=== PATIENT | female | born 1990 | race Caucasian/White ===

== ENCOUNTER 2016-05-17 18:31 | Emergency (ER) | payer SELFPAY ==
[~2016-05-17] VITALS: Ht 162.6 cm; Wt 61.4 kg
[2016-05-17 18:47] VITALS: BP 114/81; TEMP 97.8
[2016-05-17] MEDS ORDERED: PROZAC 20MG20 MG PO (18:49)
[2016-05-17] MEDS ORDERED: YAZ 28 3 MG-0.01 TAB PO (18:50)
[2016-05-17] MEDS ORDERED: ROXICODONE 55 MG/TAB PO (20:22)
[2016-05-17 20:56] VITALS: PULSE 75
== END 2016-05-17 20:56 | disposition home or self-care (01) ==
LOC: COL.ER 18:31
DX: S82.891A Other fracture of right lower leg, initial encounter for closed fracture (principal); W17.89XA Other fall from one level to another, initial encounter

== ENCOUNTER 2016-10-09 21:56 | Emergency (ER) | payer BC ==
[~2016-10-09] VITALS: Ht 162.6 cm; Wt 65.9 kg
[~2016-10-09 21:56] MED LIST: PROZAC 20MG20 MG PO; ROXICODONE 55 MG/TAB PO; YAZ 28 3 MG-0.01 TAB PO
[2016-10-09 21:59] VITALS: TEMP 98.4
[2016-10-09 22:31] LABS: BASO % 0.3 % (0.0-2.0); EOS # 0.1 (0.0-0.7); EOS % 1.2 % (0-4.0); GRAN # 9.1 (1.4-6.5); GRAN % 78.6 % (42.2-75.2); LYMPH # 1.4 (1.2-3.4); LYMPH % 12.3 % (20.0-51.0); MEAN CELL VOLUME 91 fl (80.0-100.0); MEAN CORPUSCULAR HGB CONC 34 g/dl (33.0-37.0); MEAN PLATELET VOLUME 10.2 fl (7.4-10.4); MONO # 0.8 (0.1-0.6); MONO % 7.1 % (1.7-9.3); PLATELET COUNT 224 K/mm3 (130-400); RED BLOOD COUNT 3.67 M/mm3 (4.10-5.30); REDCELL DISTRIBUTION WIDTH-CV 13.2 % (11.5-14.5); WHITE BLOOD COUNT 11.6 K/mm3 (4.8-10.8)
[2016-10-09 22:38] LABS: HEMATOCRIT 33.5 % (37.0-47.0); HEMOGLOBIN 11.3 g/dl (12.5-16.0); MEAN CORPUSCULAR HEMOGLOBIN 31 pg (27.0-31.0); PH 8 (5-8); URINE APPEARANCE Cloudy; URINE BACTERIA None Seen /hpf; URINE BILIRUBIN Negative (NEGATIVE); URINE BLOOD Negative (NEGATIVE); URINE COLOR Yellow; URINE GLUCOSE Negative (NEGATIVE); URINE KETONE Negative (NEGATIVE); URINE RBC None Seen /hpf; URINE UROBILINOGEN Negative (NEGATIVE)
[2016-10-09 22:59] LABS: ADJUSTED CALCIUM 9.3 mg/dL (8.4-10.2); ALBUMIN 3.9 gm/dL (3.5-5.0); BILIRUBIN,TOTAL 0.5 mg/dL (0.0-1.0); C-REACTIVE PROTEIN 2.6 mg/dL (0.0-0.9); CALCIUM 9.2 mg/dL (8.4-10.2); CREATININE, serum 0.6 mg/dL (0.52-1.25); POTASSIUM 3.9 mmol/L (3.4-5.0); TOTAL PROTEIN 7.2 gm/dL (6.4-8.2)
[2016-10-10 00:02] VITALS: BP 122/76; PULSE 92
== END 2016-10-10 00:01 | disposition home or self-care (01) ==
LOC: COL.ER 21:56
PROVIDERS: Family Medicine
DX: O99.89 Other specified diseases and conditions complicating pregnancy, childbirth and the puerperium (principal); R10.2 Pelvic and perineal pain; R10.31 Right lower quadrant pain; Z3A.18 18 weeks gestation of pregnancy
CPT/HCPCS: J2270; J7030

== ENCOUNTER 2017-02-02 16:59 | Inpatient (IN) | payer BC ==
[~2017-02-02] VITALS: Ht 162.7 cm; Wt 77.3 kg
[2017-03-02] MEDS ORDERED: TYLENOL 325MG325 MG PO (10:42)
[2017-03-02] MEDS ORDERED: AMBIEN 5MG TABLE5 MG PO (11:07)
[2017-03-04] VITALS (17 sets, daily range): BP systolic 109–130; BP diastolic 59–87; PULSE 64–97; TEMP 97.4–98.1
[2017-03-04 10:47] LABS: BASO % 0.4 % (0.0-2.0); EOS # 0.1 (0.0-0.7); EOS % 1.1 % (0-4.0); GRAN # 5.7 (1.4-6.5); GRAN % 66.7 % (42.2-75.2); LYMPH # 1.9 (1.2-3.4); LYMPH % 22.1 % (20.0-51.0); MEAN CELL VOLUME 87 fl (80.0-100.0); MEAN CORPUSCULAR HGB CONC 33 g/dl (33.0-37.0); MEAN PLATELET VOLUME 10.2 fl (7.4-10.4); MONO # 0.7 (0.1-0.6); MONO % 8.5 % (1.7-9.3); PLATELET COUNT 198 K/mm3 (130-400); RED BLOOD COUNT 3.57 M/mm3 (4.10-5.30); REDCELL DISTRIBUTION WIDTH-CV 14.3 % (11.5-14.5)
[2017-03-04 10:48] LABS: HEMATOCRIT 31.2 % (37.0-47.0); HEMOGLOBIN 10.2 g/dl (12.5-16.0); MEAN CORPUSCULAR HEMOGLOBIN 29 pg (27.0-31.0)
[2017-03-04] MEDS ORDERED: PERCOCET 325 MG1 TA2 PO (14:35)
[2017-03-04] MEDS ORDERED: MOTRIN 800800 MG/TAB PO (14:35)
[2017-03-05 01:30] VITALS: BP 108/71; PULSE 88; TEMP 97.4
[2017-03-05 04:30] VITALS: BP 111/72; PULSE 80; TEMP 97.4
[2017-03-05 08:05] VITALS: BP 116/60; PULSE 74; TEMP 97.4
[2017-03-05 08:17] LABS: HEMATOCRIT 29.1 % (37.0-47.0); HEMOGLOBIN 9.5 g/dl (12.5-16.0)
[2017-03-05 16:10] VITALS: BP 117/73; PULSE 79; TEMP 97.6
[2017-03-05 18:40] VITALS: BP 120/73; PULSE 79; TEMP 97.8
[2017-03-06 06:30] VITALS: BP 115/80; PULSE 71; TEMP 97.7
[2017-03-06 16:40] VITALS: BP 120/68; PULSE 70; TEMP 97.5
[2017-03-06 19:20] VITALS: BP 116/70; PULSE 77; TEMP 98.2
[2017-03-07 07:30] VITALS: BP 127/75; PULSE 68; TEMP 97.6
== END 2017-03-07 11:00 | disposition home or self-care (01) | DRG 766 ==
LOC: LDR 02-11 16:59 → OB 03-04 06:44
PROVIDERS: Obstetrics & Gynecology
PROC: 10D00Z1 Extraction of Products of Conception, Low, Open Approach (ICD-10-PCS; principal; 2017-03-04)
DX: O36.0130 Maternal care for anti-D [Rh] antibodies, third trimester, not applicable or unspecified (principal); O99.344 Other mental disorders complicating childbirth; F41.9 Anxiety disorder, unspecified; Z3A.39 39 weeks gestation of pregnancy; Z37.0 Single live birth
CPT/HCPCS: J0690; J1885; J2270; J2370; J2590; J7120

== ENCOUNTER 2017-02-25 19:02 | Outpatient (CLI) | payer BC ==
[~2017-02-25] VITALS: Ht 162.6 cm; Wt 77.3 kg
[2017-02-25 18:45] VITALS: BP 123/71; PULSE 78; TEMP 97.9
[2017-02-25 20:45] VITALS: BP 117/60; PULSE 78
[2017-02-25 21:45] VITALS: BP 116/59; PULSE 80
[2017-02-25 23:39] VITALS: BP 123/71; PULSE 78; TEMP 97.9
== END 2017-02-25 23:50 | disposition home or self-care (01) ==
LOC: LDRO 19:02
DX: Z04.3 Encounter for examination and observation following other accident (principal); O9A.213 Injury, poisoning and certain other consequences of external causes complicating pregnancy, third trimester; W01.10XA Fall on same level from slipping, tripping and stumbling with subsequent striking against unspecified object, initial encounter; Z3A.38 38 weeks gestation of pregnancy

== ENCOUNTER 2017-03-02 10:18 | Outpatient (CLI) | payer BC ==
[~2017-03-02] VITALS: Ht 162.6 cm; Wt 77.3 kg
[2017-03-02 10:42] VITALS: BP 139/79; PULSE 103; TEMP 98.2
[2017-03-02] MEDS ORDERED: TYLENOL 325MG325 MG PO (10:42)
[2017-03-02] MEDS ORDERED: AMBIEN 5MG TABLE5 MG PO (11:07)
[2017-03-02 11:30] VITALS: BP 139/79; PULSE 103; TEMP 98.2
[2017-03-02 12:55] VITALS: BP 112/66; PULSE 84
[2017-03-02 13:39] VITALS: BP 112/66; PULSE 90
== END 2017-03-02 14:05 | disposition home or self-care (01) ==
LOC: LDRO 10:18 → LDR 10:20 → LDRO 14:05
DX: O62.9 Abnormality of forces of labor, unspecified (principal); Z3A.38 38 weeks gestation of pregnancy
CPT/HCPCS: OP

== ENCOUNTER → 2017-07-29 | Outpatient (CLI) | payer BC ==
[~2017-07-29] MED LIST changes: +AMBIEN 5MG TABLE5 MG PO; +KLONOPIN 0.5MG0.5 MG PO; +MOTRIN 800800 MG/TAB PO; +PERCOCET 325 MG1 TA2 PO; +SEASONIQUE1 TAB; +TYLENOL 325MG325 MG PO
== END ==
LOC: COL.RAD 14:51
DX: R10.2 Pelvic and perineal pain (principal)

== ENCOUNTER 2017-11-12 12:06 | Observation (INO) | payer BC ==
[~2017-11-12] VITALS: Ht 162.6 cm; Wt 64.5 kg
[2017-11-12] VITALS (8 sets, daily range): BP systolic 111–123; BP diastolic 65–76; PULSE 87–114; TEMP 98.5
[~2017-11-12 12:06] MED LIST changes: +PHENERGAN 25 TA25 MG PO
[2017-11-12 13:04] LABS: BASO % 0.3 % (0.0-2.0); EOS # 0.1 (0.0-0.7); GRAN # 6.4 (1.4-6.5); GRAN % 68.7 % (42.2-75.2); HEMATOCRIT 36.1 % (37.0-47.0); HEMOGLOBIN 12.1 g/dl (12.5-16.0); LYMPH # 2.1 (1.2-3.4); LYMPH % 22.5 % (20.0-51.0); MEAN CELL VOLUME 85 fl (80.0-100.0); MEAN CORPUSCULAR HEMOGLOBIN 29 pg (27.0-31.0); MEAN CORPUSCULAR HGB CONC 34 g/dl (33.0-37.0); MONO # 0.7 (0.1-0.6); MONO % 7.2 % (1.7-9.3); PLATELET COUNT 217 K/mm3 (130-400); RED BLOOD COUNT 4.23 M/mm3 (4.10-5.30); REDCELL DISTRIBUTION WIDTH-CV 13.3 % (11.5-14.5)
[2017-11-12 13:13] LABS: ALBUMIN 4.3 gm/dL (3.5-5.0); BILIRUBIN,TOTAL 0.5 mg/dL (0.0-1.0); CALCIUM 8.9 mg/dL (8.4-10.2); CREATININE, serum 0.73 mg/dL (0.52-1.25); POTASSIUM 3.7 mmol/L (3.4-5.0); TOTAL PROTEIN 7.6 gm/dL (6.4-8.2)
[2017-11-12] MEDS ORDERED: PERCOCET 325 MG1 TA2 PO (16:25)
== END 2017-11-12 20:32 | disposition home or self-care (01) ==
LOC: COL.ER 12:06 → OB 15:00
PROVIDERS: Emergency Medicine
DX: N93.0 Postcoital and contact bleeding (principal); R10.2 Pelvic and perineal pain; G43.909 Migraine, unspecified, not intractable, without status migrainosus; M94.0 Chondrocostal junction syndrome [Tietze]; F41.9 Anxiety disorder, unspecified; Z90.710 Acquired absence of both cervix and uterus; Z87.42 Personal history of other diseases of the female genital tract; Z87.442 Personal history of urinary calculi; Z83.3 Family history of diabetes mellitus
CPT/HCPCS: J0690; J1100; J1170; J1885; J2405; J2550; J2704; J2765; J3010; J7030; J7120

== ENCOUNTER → 2017-12-16 | Outpatient (CLI) | payer BC | LOC: COL.RAD 13:06 | DX: R10.2 Pelvic and perineal pain (principal); Z90.710 Acquired absence of both cervix and uterus ==

== ENCOUNTER → 2018-08-11 | Outpatient (CLI) | payer BC | LOC: COL.RAD 13:21 | DX: R10.11 Right upper quadrant pain (principal); Z90.710 Acquired absence of both cervix and uterus; Z87.42 Personal history of other diseases of the female genital tract ==

== ENCOUNTER 2018-09-12 20:33 | Emergency (ER) | payer BC ==
[~2018-09-12] VITALS: Ht 162.6 cm; Wt 68.2 kg
[2018-09-12 21:08] VITALS: TEMP 98.2
[2018-09-12] MEDS ORDERED: VALIUM 5MG T5 MG/TAB PO (21:11)
[2018-09-12] MEDS ORDERED: WELLBUTRIN SR150 M1 PO (21:14)
[2018-09-12] MEDS ORDERED: PROZAC40 MG PO (21:15)
[2018-09-12 22:03] LABS: COLLECTION METHOD CLEAN CATCH
[2018-09-12 22:08] LABS: MUCOUS Present /lpf; PH 6 (5-8); SQUAMOUS EPITHELIAL 0-2 /hpf; URINE APPEARANCE Clear; URINE BACTERIA None Seen /hpf; URINE BILIRUBIN Negative (NEGATIVE); URINE BLOOD Negative (NEGATIVE); URINE COLOR Yellow; URINE GLUCOSE Negative (NEGATIVE); URINE KETONE Negative (NEGATIVE); URINE LEUKOCYTE ESTERASE Negative (NEGATIVE); URINE NITRATE Negative (NEGATIVE); URINE PROTEIN(semi-quant) Negative (NEGATIVE); URINE RBC 0-2 /hpf; URINE UROBILINOGEN >=4.0 mg/dL (NEGATIVE)
[2018-09-12 22:26] LABS: TRICYCLIC ANTIDEPRESS URINE POSITIVE
[2018-09-12 22:45] LABS: BASO # 0.1 (0.0-0.2); BASO % 0.8 % (0.0-2.0); EOS # 0.1 (0.0-0.7); EOS % 1.9 % (0-4.0); GRAN # 3.3 (1.4-6.5); GRAN % 53.2 % (42.2-75.2); HEMATOCRIT 39.1 % (37.0-47.0); HEMOGLOBIN 12.6 g/dl (12.5-16.0); LYMPH # 2.3 (1.2-3.4); LYMPH % 35.8 % (20.0-51.0); MEAN CELL VOLUME 92 fl (80.0-100.0); MEAN CORPUSCULAR HEMOGLOBIN 30 pg (27.0-31.0); MEAN CORPUSCULAR HGB CONC 32 g/dl (33.0-37.0); MEAN PLATELET VOLUME 9.4 fl (7.4-10.4); MONO # 0.5 (0.1-0.6); PLATELET COUNT 295 K/mm3 (130-400); RED BLOOD COUNT 4.24 M/mm3 (4.10-5.30); REDCELL DISTRIBUTION WIDTH-CV 12.4 % (11.5-14.5)
[2018-09-12 22:56] LABS: ACETAMINOPHEN 29 ug/mL (10-30); ALANINE AMINOTRANSFERASE 36 U/L (9-52); ALBUMIN 4.6 gm/dL (3.5-5.0); ALKALINE PHOSPHATASE 113 U/L (50-136); ANION GAP 12 mmol/L (7-16); AST,SGOT 35 U/L (15-37); BILIRUBIN,TOTAL 0.3 mg/dL (0.0-1.0); BLOOD UREA NITROGEN 14 mg/dL (7-17); CALCIUM 9.5 mg/dL (8.4-10.2); CARBON DIOXIDE 26 mmol/L (22-30); CHLORIDE 102 mmol/L (98-107); CREATININE, serum 0.76 (0.52-1.25); GLUCOSE 95 mg/dL (74-106); POTASSIUM 3.9 mmol/L (3.4-5.0); SODIUM 140 mmol/L (137-145); TOTAL PROTEIN 8.2 gm/dL (6.4-8.2)
[2018-09-12 23:04] LABS: ALCOHOL(ethanol),MEDICAL < 10 mg/dL; SALICYLATE < 1.0 mg/dL
[2018-09-13 02:53] VITALS: BP 117/52; PULSE 79
== END 2018-09-13 02:56 | disposition home or self-care (01) ==
LOC: COL.ER 20:33
PROVIDERS: Emergency Medicine
DX: F32.9 Major depressive disorder, single episode, unspecified (principal); T40.2X2A Poisoning by other opioids, intentional self-harm, initial encounter; R45.851 Suicidal ideations
CPT/HCPCS: J7030